=== PATIENT | female | born 1955 | race Caucasian/White ===

== ENCOUNTER 2016-07-27 14:46 | Emergency (ER) | payer OTHER, BC ==
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
[2016-07-27 16:15] VITALS: BP 148/78
== END 2016-07-27 16:12 | disposition home or self-care (01) ==
LOC: ER 14:46
DX: S16.1XXA Strain of muscle, fascia and tendon at neck level, initial encounter (principal); S50.11XA Contusion of right forearm, initial encounter; V89.2XXA Person injured in unspecified motor-vehicle accident, traffic, initial encounter
CPT/HCPCS: 72125; 99284